=== PATIENT | female | born 1955 | race Caucasian/White ===

== ENCOUNTER 2019-05-15 07:54 | Outpatient (CLI) | payer BC, OTHER | END 2019-05-15 23:59 | disposition home or self-care (01) | LOC: CFH 07:54 | PROVIDERS: ATTEND Internal Medicine | DX: Z12.31 Encounter for screening mammogram for malignant neoplasm of breast (principal) | CPT/HCPCS: 77067 ==

== ENCOUNTER 2020-09-02 10:02 | Outpatient (CLI) | payer MEDICARE | END 2020-09-02 23:59 | disposition home or self-care (01) | LOC: CFH 10:02 | PROVIDERS: ATTEND Internal Medicine | DX: Z12.31 Encounter for screening mammogram for malignant neoplasm of breast (principal) | CPT/HCPCS: 77063; 77067 ==

== ENCOUNTER 2020-09-16 09:40 | Outpatient (CLI) | payer MEDICARE | END 2020-09-16 23:59 | disposition home or self-care (01) | LOC: CFH 09:40 | PROVIDERS: ATTEND Internal Medicine | DX: M85.88 Other specified disorders of bone density and structure, other site (principal); N95.8 Other specified menopausal and perimenopausal disorders | CPT/HCPCS: 77080 ==

== ENCOUNTER 2021-02-24 13:30 | Observation (INO) | payer MEDICARE ==
[~2021-02-24] VITALS: Ht 154.9 cm; Wt 59.4 kg
[2021-02-24 15:06] LABS: BASOPHILS % (AUTO) 1 % (0-1); EOSINOPHILS % (AUTO) 2 % (1-7); LYMPHOCYTES % (AUTO) 29 % (22-44); MEAN CORPUSCULAR HEMOGLOBIN 32.1 pg (27.0-34.8); MEAN CORPUSCULAR HGB CONC 34.3 g/dL (32.4-35.8); MEAN PLATELET VOLUME 7.9 fL (7.4-10.4); MONOCYTES % (AUTO) 9 % (2-9); NEUTROPHILS % (AUTO) 60 % (42-75); PLATELET COUNT 210 x10^3/uL (130-400); RED BLOOD COUNT 4.39 x10^6/uL (3.82-5.3); RED CELL DISTRIBUTION WIDTH 12.6 % (9.6-15.2)
[2021-02-24 15:24] LABS: ALBUMIN 3.7 g/dL (3.4-5.0); ANION GAP 5 mmol/L (5-15); CALCIUM 9.1 mg/dL (8.5-10.1); CHLORIDE 108 mmol/L (98-107)
[2021-02-24 15:30] LABS: ALANINE AMINOTRANSFERASE 25 U/L (12-78); ALKALINE PHOSPHATASE 82 U/L (45-117); BILIRUBIN,TOTAL 1.2 mg/dL (0.2-1.0); CREATININE 0.77 mg/dL (0.55-1.02); TOTAL PROTEIN 6.9 g/dL (6.4-8.2); TROPONIN I < 0.015 ng/mL (0.000-0.045)
--- NOTE | 2021-02-24 15:57 | NUR ---
POC TO BE ADMITTED FOR CHEST PAIN WORK UP
--- NOTE | 2021-02-24 17:16 | NUR ---
PT RESTING, EDUCATED ABOUT POC AND ADMISSION
--- NOTE | 2021-02-24 18:28 | NUR ---
WAITING FOR ADMIT BED. PT RESTING, ORDERED MEAL TRAY AND EXTRA BLANKET
--- NOTE | 2021-02-24 18:43 | NUR ---
GIVEN MEAL TRAY AND BEVERAGES
--- NOTE | 2021-02-24 18:52 | NUR ---
RECIEVED REPORT FROM SUNNY BLANKENSHIP. TRANSFER OF CARE.
--- NOTE | 2021-02-24 19:02 | NUR ---
PT STATES SHE DOES NOT TAKING ANY MEDICATIONS. NO NEED FOR MED REC
--- NOTE | 2021-02-24 19:02 | NUR ---
Patient is resting comfortably in bed. Bed in lowest, rails engaged, call light on lap. Vital Signs within normal limits. WCTM.
--- NOTE | 2021-02-24 20:24 | NUR ---
GAVE REPORT TO AMANDA BLANKENSHIP
--- NOTE | 2021-02-24 20:30 | NUR ---
LATE ENTRY DUE TO PT CARE. PA AT BEDSIDE 5 MINS AGO BEGINNING SUTURE PROCEDURE.
[2021-02-24 20:47] VITALS: BP 155/98
[2021-02-24] MEDS ORDERED: ONDANSETRON 2MG/ML, 2ML IVPush PRN (22:30)
[2021-02-24] MEDS ORDERED: MELATONIN 5 MG TABLET PO PRN (22:30)
[2021-02-24] MEDS ORDERED: BISACODYL 10 MG SUPP PR PRN (22:30)
[2021-02-24] MEDS ORDERED: morphine SULFATE 10 MG/ML, 1ML IVPush PRN (22:30)
[2021-02-24] MEDS ORDERED: ENALAPRILAT 1.25 MG/ML, 2ML IVPush PRN (22:30)
[2021-02-24] MEDS ORDERED: NITROGLYCERIN 0.4 MG BOTTLE (25 TABS) SL PRN (22:30)
[2021-02-24 23:32] LABS: TROPONIN I < 0.015 ng/mL (0.000-0.045)
[2021-02-24] MEDS: HEPARIN 5,000 UNITS/ML, 1ML SQ SCH (23:36)
[2021-02-25 00:49] VITALS: BP 130/87
[2021-02-25 05:07] LABS: BASOPHILS % (AUTO) 1 % (0-1); EOSINOPHILS % (AUTO) 2 % (1-7); LYMPHOCYTES % (AUTO) 41 % (22-44); MEAN CORPUSCULAR HEMOGLOBIN 32.5 pg (27.0-34.8); MEAN CORPUSCULAR HGB CONC 34.6 g/dL (32.4-35.8); MEAN PLATELET VOLUME 8.9 fL (7.4-10.4); MONOCYTES % (AUTO) 9 % (2-9); NEUTROPHILS % (AUTO) 47 % (42-75); PLATELET COUNT 214 x10^3/uL (130-400); RED BLOOD COUNT 4.36 x10^6/uL (3.82-5.3); RED CELL DISTRIBUTION WIDTH 12.7 % (9.6-15.2)
[2021-02-25 05:20] LABS: ANION GAP 5 mmol/L (5-15); CALCIUM 9.6 mg/dL (8.5-10.1); CHLORIDE 110 mmol/L (98-107); CHOLESTEROL, TOTAL 217 mg/dL (140-239); CREATININE 0.87 mg/dL (0.55-1.02); TRIGLYCERIDES 150 mg/dL (50-200); VLDL CHOLESTEROL 30 mg/dL (0-25)
[2021-02-25 05:24] LABS: CHOL/HDL RATIO 4.3; HDL CHOL % 23 % (28-40); HDL CHOLESTEROL (DIRECT) 50 mg/dL (40-60); LDL CHOLESTEROL,CALCULATED 137 mg/dL (54-169); LDL/HDL RATIO 2.7 (0.5-3.0); TROPONIN I < 0.015 ng/mL (0.000-0.045)
[2021-02-25 07:19] VITALS: BP 144/93
[2021-02-25] MEDS: HEPARIN 5,000 UNITS/ML, 1ML SQ SCH (07:30)
[2021-02-25 12:37] VITALS: BP 124/81
[2021-02-25] MEDS ORDERED: PANT40TA3 PO (12:54)
== END 2021-02-25 15:56 | disposition home or self-care (01) ==
LOC: ED 17:28 → INTOOBSV 18:07 → EDIP 18:07 → 5SO 20:37
PROVIDERS: ADMIT Internal Medicine; ATTEND Internal Medicine
DX: R07.89 Other chest pain (principal); I20.0 Unstable angina; E78.5 Hyperlipidemia, unspecified; Z79.899 Other long term (current) drug therapy
CPT/HCPCS: 36415; 71045; 80048; 80053; 80061; 83036; 84443; 84484; 85025; 93005; 93017; 93306; 96372; 99285; G0378; J1644